=== PATIENT | male | born 1930 | race Caucasian/White ===

== ENCOUNTER 2016-10-20 23:33 | Inpatient (IN) | payer OTHER ==
[~2016-10-20] VITALS: Ht 180.3 cm; Wt 64.0 kg
--- NOTE | 2016-10-21 00:01 | NUR ---
RECEIVED 86 Y/O M BIB [facility] FOR FEVER AND ALOC FROM [facility]. PER MEDIC PT HAD FEVER OF 103 AT [facility] AND WAS SENT HERE. PT IS ORIENTED TO SELF ONLY; STS THE YEAR IS 1990 AND DOES NOT KNOW WHERE HE IS OR WHY HE IS HERE. RESP E/U, NAD NOTED. SITTER AT BEDSIDE.
[2016-10-21 00:37] LABS: microscopic required? NO
[2016-10-21 00:47] LABS: urine erythrocyte NEGATIVE (NEGATIVE)
[2016-10-21 01:02] LABS: CALCIUM 8.6 mg/dL (8.5-10.1); CARBON DIOXIDE 30.5 mmol/L (21-32); CHLORIDE SERUM 103 mmol/L (98-107); CREATININE SERUM 1.4 mg/dL (0.7-1.3); GLUCOSE SERUM 110 mg/dL (74-106); POTASSIUM SERUM 4.2 mmol/L (3.5-5.1); SODIUM SERUM 140 mmol/L (136-145)
[2016-10-21 01:06] LABS: BASOPHIL % 0.8 % (0-2); PLATELET COUNT 222 x10^3mcL (130-400); RED CELL DISTRIBUTION WIDTH 12.6 % (11.5-14.5)
[2016-10-21 01:10] LABS: ALKALINE PHOSPHATASE 63 U/L (46-116); ALT/SGPT 26 U/L (16-63); AST/SGOT 28 U/L (15-37); BILIRUBIN TOTAL 0.2 mg/dL (0.20-1.00)
[2016-10-21 01:11] LABS: ALBUMIN 3.2 g/dL (3.4-5.0); T4(THYROXINE) 4.1 ug/dL (4.7-13.3)
--- NOTE | 2016-10-21 01:20 | NUR ---
PATIENT MEDICATEB WTH TYLENOL FOR FEVER. STRAIGHT CATH WAS DONE URINE SENT TO THE LAB
[2016-10-21 02:15] LABS: MAGNESIUM 1.5 mg/dL (1.8-2.4); PHOSPHOROUS 3.1 mg/dL (2.5-4.9)
[2016-10-21 02:19] LABS: T3 TOTAL 1.15 ng/mL
[2016-10-21] MEDS ORDERED: HYDROCHLOROTH12.5 M2 PO (02:22)
[2016-10-21] MEDS ORDERED: ZYPREXA15 M1 PO (02:22)
[2016-10-21] MEDS ORDERED: NOR10 PO (02:23)
[2016-10-21] MEDS ORDERED: BUSPIRONE HCL5 MG PO (02:24)
[2016-10-21] MEDS ORDERED: MP PO (02:26)
[2016-10-21] MEDS ORDERED: ATIVAN1 MG PO (02:28)
[2016-10-21 02:32] LABS: FREE T4 0.78 ng/dL (0.76-1.46); FREE THYROXINE INDEX 1.5 ug/dL (1.4-4.5); T4(THYROXINE) 4.4 ug/dL (4.7-13.3)
--- NOTE | 2016-10-21 03:00 | NUR ---
PATIENT ISINCONTINENT, DIAPER AND LINEN CHANGED.
[2016-10-21 03:43] VITALS: BP 171/77
[2016-10-21 05:18] LABS: PLATELET COUNT 232 x10^3mcL (130-400); RED CELL DISTRIBUTION WIDTH 13.5 % (11.5-14.5)
[2016-10-21 05:29] LABS: CALCIUM 8.9 mg/dL (8.5-10.1); CARBON DIOXIDE 28.1 mmol/L (21-32); CHLORIDE SERUM 103 mmol/L (98-107); CREATININE SERUM 1.4 mg/dL (0.7-1.3); GLUCOSE SERUM 110 mg/dL (74-106); POTASSIUM SERUM 4.3 mmol/L (3.5-5.1); SODIUM SERUM 141 mmol/L (136-145)
[2016-10-21 05:46] LABS: MAGNESIUM 1.5 mg/dL (1.8-2.4); PHOSPHOROUS 3.3 mg/dL (2.5-4.9)
--- NOTE | 2016-10-21 05:49 | NUR ---
PATIENT IS SLEEPING. WAITING FOR ADMISSION ROOM.
[2016-10-21 05:55] LABS: BAND NEUTROPHIL 10 % (0-10); BASOPHIL 0 % (0-2); MONOCYTE 5 % (0-7); SEGMENTED NEUTROPHILS 73 % (37-75)
[2016-10-21 05:56] LABS: PLATELET MORPHOLOGY PLATELETS NORMAL; rbc morphology (normal/abnorm) NORMAL (NORMAL)
--- NOTE | 2016-10-21 06:20 | NUR ---
PATIENT IS SLEEPING.
--- NOTE | 2016-10-21 07:12 | NUR ---
pATIENT INCONTINENT, DIAPER CHANGED
--- NOTE | 2016-10-21 07:18 | NUR ---
PATIENT WENT TO HAVE XRAY DONE.
--- NOTE | 2016-10-21 07:23 | NUR ---
TRIED TO GIVE REPORT TO OUTDOOR STUDIES PROFESSOR, PER MARIELLA TRACTOR MECHANIC CHARGE UNABLE TO COME TO THE PHONE IN REPORT
--- NOTE | 2016-10-21 07:38 | NUR ---
REPORT GIVEN TO SAIRA TURCIOS FOR PT TO GO TO TELE BED 228
--- NOTE | 2016-10-21 08:00 | NUR ---
RECEIVED PATIETN FROM ER. CONFUSED. GARBLE SPEECH. TELE# 10= SR; HR = 78; BREATHING SOUND DIMINISHED DONATO. O2 SAT 95% ON RA. NO RESP DISTRESS IN RA. OCCASIONAL COUGHING. IVF OF NS 110CC/HR INFUSING WELL TO LAC. TRACE EDEMA TO BLE. NO S/S OF PAIN. CALL LIGHT IN REACH.
[2016-10-21 08:04] VITALS: BP 142/67
--- NOTE | 2016-10-21 08:30 | NUR ---
DR. DALAL AND MEDICAL TEAM MADE MORNING ROUND. PATIENT CONFUSING.
--- NOTE | 2016-10-21 17:02 | NUR ---
PATIENT AWAKE AND HAD LATER LUNCH. THEN PATIENT AGITATED. OUT OF BED AND PULLED TELE MONITOR. WALKED INTO [address] AND DIDN'T LET CAREGIVERS CLOSE TO HIM. I HOLD PATIENT'S GOWN. HE WAS ANGRY AND SAID, " I'LL KNOCK YOUR FACE IF YOU DON'T LET ME GO HOME". DR. ROJAS, PSYCHOLOGIST AT BED SIDE AND AWARE OF. DR. CASILLAS NOTIFED.
[2016-10-21 17:17] VITALS: BP 134/53
--- NOTE | 2016-10-21 17:22 | NUR ---
TEMP = 100.8. TYLENOL 650MG PO GIVEN.
--- NOTE | 2016-10-21 17:23 | NUR ---
ATIVAN 1MG PO GIVEN DUE TO PATIENT AGITATION.
--- NOTE | 2016-10-21 18:48 | NUR ---
RECHECK TEMP = 100.8. COOLING MEASURE CONTINUE. CALM AND RESTING IN BED NOW. SITTER AT BED SIDE FOR SAFETY PRECUTION.
--- NOTE | 2016-10-21 18:58 | NUR ---
PATIENT SPIT SPUTUM ON FLOOR. GREYISH SPUTUM SEEN.
--- NOTE | 2016-10-21 19:40 | NUR ---
REC'D AWAKE AND CONFUSED. LETHARGIC. DENIES PAIN. ON TELE 10, NSR. DENIES CHEST PAIN. ON 2L VIA NC, NO SOB NOTED. NOTED WOUNDS TO RIGHT ELBOW AND HIP. IV ON LAC WNL. CALL LIGHT WITHIN REACH, WILL CONTINUE TO MONITOR
[2016-10-21 20:20] VITALS: BP 127/44
--- NOTE | 2016-10-21 23:21 | NUR ---
DUE MEDS GIVEN, PT TOLERATED WELL. WILL CONTINUE TO MONITOR
--- NOTE | 2016-10-22 03:28 | NUR ---
PROVIDED REPORT TO YOLANDA TURCIOS
--- NOTE | 2016-10-22 03:30 | NUR ---
ASSUMED CARE OF PT AT THIS TIME. PT APPEARS TO BE SLEEPING COMFORTABLY. SITTER AT BEDSIDE.
[2016-10-22 05:49] VITALS: BP 139/53
[2016-10-22 06:20] LABS: BASOPHIL % 0.1 % (0-2); PLATELET COUNT 206 x10^3mcL (130-400); RED CELL DISTRIBUTION WIDTH 13.6 % (11.5-14.5)
[2016-10-22 06:25] LABS: CARBON DIOXIDE 25.3 mmol/L (21-32); CHLORIDE SERUM 110 mmol/L (98-107); CREATININE SERUM 1.1 mg/dL (0.7-1.3); GLUCOSE SERUM 89 mg/dL (74-106); MAGNESIUM 1.8 mg/dL (1.8-2.4); POTASSIUM SERUM 3.9 mmol/L (3.5-5.1); SODIUM SERUM 141 mmol/L (136-145)
--- NOTE | 2016-10-22 08:00 | NUR ---
ALERT/CONFUSED. HX OF DEMENTIA. AGITATED AT TIMES. TELE #10 = SR; BREATHING SOUND DIMINISHED DONATO. PRODUCTIVE COUGHING WITH SMALL AMOUNT GRAYISH SPUTUM. O2 SAT 95% ON RA. NO SOB. URINE INCONT AT TIMES. IVF OF NS 50CC/HR PER ORDER. IV SITE TO LFA INTACT. SITTER AT BED SIDE FOR SAFETY PRECAUTION.
[2016-10-22 08:52] VITALS: BP 155/55
--- NOTE | 2016-10-22 09:00 | NUR ---
DR. DALAL AND MEDICAL TEAM MADE MORNING ROUND. PLAN OF CARE TOLD PATIENT, INCLUDED WITH TREATMENT OF RESP INFECTION.
--- NOTE | 2016-10-22 11:00 | NUR ---
AGITATED AND OUT OF BED. HE ASKED ME TO "GO AIR FORCE TO GET HIS ID AND WALLET". ATIVAN 1MG PO GIVEN. SITTER AT BED SIDE.
--- NOTE | 2016-10-22 11:45 | NUR ---
REPORTED BY PEDRO, LEAD INVESTIGATOR, WAS SITTER AT BED SIDE WITH PATIENT. PATIENT SLIPPED ON URINE THAT PATIENT VOID TO FLOOR AND FELL ON FLOOR. PER NANCY, CHARGE NURSE - SHE SAW PATIENT WAS SITTING ON FLOOR WHEN SHE ENTERED TO ROOM 228. WHEN I ENTERED ROOM. PATIENT WAS WALKING OUT OF ROOM. DENIED PAIN. ABLE TO WALK BY HIMSELF. NO SKIN LESION SEEN.
--- NOTE | 2016-10-22 11:46 | NUR ---
PER REPORT OF KAROLINA LEAL AND KAROLINA FUNES - PATIENT WAS SITTING ON FLOOR. THEY HELPED PATIENT TO GET UP TO SIT IN CHAIR.
[2016-10-22 13:33] VITALS: BP 153/57
--- NOTE | 2016-10-22 13:38 | NUR ---
AGITATED AND WALKED OUT OF ROOM. HE WAS LOOKING FOR SHOES AND HAMMER. NOT CO-OP TO CARES. CALLED SECURITY TO ROOM. DR. CASILLAS NOTIFIED. ORDER OF ANTIVAN 0.5MG IVP GIVEN AFTER PATIENT HAD LUNCH.
--- NOTE | 2016-10-22 13:48 | NUR ---
CONTINUE AGITATED. YELLING AND ATTEMPTED TO OUT OF BED. DR. CASILLAS CALLED AND NOTIFIED. NEW ORDER OF HOLDOL 5MG IM GIVEN.
[2016-10-22 16:16] VITALS: BP 144/56
--- NOTE | 2016-10-22 17:40 | NUR ---
AGITATED. YELLING. ATIVAN 0.5MG IVP GIVEN. CONTINUE MONITOR.
--- NOTE | 2016-10-22 19:25 | NUR ---
NOTIFIED TO DR. KEY WITH PATIENT WHO FELL AT 1135. NO S/S OF INJURY. REPORT IS FOLLOWING.
--- NOTE | 2016-10-22 19:40 | NUR ---
RECEIVED PT IN BED AWAKE AND LOOKING VERY DROWSY BUT TRYING TO GET OOB. SITTER AT BEDSIDE. PT CONFUSED. HE IS REORIETED TO SURROUNDINGS AND SITUATION BUT INEFFECTIVE. LUNG SOUNDS CLEAR BUT DIMINISHED. PT W/ OCCASIONAL COUGHING. NO SOB ON RA. BOWEL SOUNDS ACTIVE. HE HAS NO C/O PAIN AT THIS TIME. W/ IVF INFUSING VIA LTFA. WILL CONTINUE W/ CARE.
[2016-10-22 21:00] VITALS: BP 163/67
--- NOTE | 2016-10-22 23:40 | NUR ---
PT'S HEART RHYTHM CONVERTED TO A-FIB. PT ASLEEP AT THIS TIME. V/S: T=98.8 RR=18 GB=533/94 JC=552 O2 SAT=94 %. PT HAS NO C/O CHEST PAIN.
[2016-10-23] VITALS (7 sets, daily range): BP systolic 119–163; BP diastolic 49–94
--- NOTE | 2016-10-23 00:25 | NUR ---
DR. TOURE INFORMED THAT PT'S HEART RHYTHM CONVERTED TO A-FIB. PT NOT C/O CHEST PAIN OR DISCOMFORT. PT BEING CLEANED AT THIS TIME (INCONTINENT OF URINE).
--- NOTE | 2016-10-23 00:56 | NUR ---
EKG DONE ORDERED AND SHOWS A-FIB W/ RVR.
--- NOTE | 2016-10-23 00:59 | NUR ---
CARDIZEM 10 MG IV GIVEN ORDERED.
--- NOTE | 2016-10-23 01:20 | NUR ---
BP RECHECKED AFTER CARDIZEM 10 MG IV : RB=533/84 CY=545. PT'S EYES CLOSED , CONFUSED AND MOVING ON AND OFF IN BED.
--- NOTE | 2016-10-23 01:40 | NUR ---
INFORMED DR. TOURE REGARDING EKG RESULT.
--- NOTE | 2016-10-23 01:47 | NUR ---
CARDIZEM 30 MG PO GIVEN ORDERED.
--- NOTE | 2016-10-23 01:51 | NUR ---
PT MEDICATED W/ MORPHINE SULFATE 2 MG IV FOR C/O NECK PAIN .
--- NOTE | 2016-10-23 01:51 | NUR ---
PT C/O NECK PAIN . MEDICATED W/ MORPHINE SULFATE 2 MG IV.
--- NOTE | 2016-10-23 04:49 | NUR ---
PT AWAKE AND CONFUSED. PT TRYING TO GET OOB AND COMBATIVE. HR IN THE 130'S. ATIVAN 0.5 MG IV GIVEN.
--- NOTE | 2016-10-23 05:25 | NUR ---
PT STILL AWAKE BUT MORE QUIET AND CALM AFTER ATIVAN WAS GIVEN. PT WAS MEDICATED FOR PAIN X1. HR IN THE 120'S=130'S AT THIS TIME. NO EPISODE OF SOB. IVF NS AT 50 CC/HR INFUSING VIA LTFA. ALL NEEDS ATTENDED TO. SITTER REMAINS AT BEDSIDE.
[2016-10-23 06:13] LABS: BASOPHIL % 0.1 % (0-2); PLATELET COUNT 247 x10^3mcL (130-400); RED CELL DISTRIBUTION WIDTH 13.6 % (11.5-14.5)
[2016-10-23 06:19] LABS: CALCIUM 8.5 mg/dL (8.5-10.1); CARBON DIOXIDE 27.5 mmol/L (21-32); CHLORIDE SERUM 107 mmol/L (98-107); GLUCOSE SERUM 96 mg/dL (74-106); MAGNESIUM 1.8 mg/dL (1.8-2.4); PHOSPHOROUS 3.9 mg/dL (2.5-4.9); POTASSIUM SERUM 3.9 mmol/L (3.5-5.1); SODIUM SERUM 143 mmol/L (136-145)
--- NOTE | 2016-10-23 07:30 | NUR ---
RECEIVED PATIENT DROWSY BUT AROUSABLE, CONFUSED, NO DISTRESS NOTED, RESPOND ONLY TO FIRST NAME. IV INTACT AND PATENT, SITTER 1:1 AT BEDSIDE, OCCAS DOZING OFF AND UNABLE TO EAT BREAKFAST AT THIS TIME. CHANGING GOWN AND REPOSITIONED UP IN BED. CALL LIGHT WITHIN REACH.
--- NOTE | 2016-10-23 08:00 | NUR ---
DR. MCDONALD AND MEDICAL TEAM MAKING ROUND ON PATIENT, DISCUSS POC, AND INCREASE SEROQUEL DOSAGE FOR PATIENT. RESTING IN BED NO DISTRESS NOTED WITH SITTER AT BEDSIDE.
--- NOTE | 2016-10-23 09:20 | NUR ---
PATIENT IS MORE AWAKE, CONFUSED, SITTER REMAIN AT BEDSIDE ASSISTING WITH REPOSITION UP IN BED, MEDS CRUSH AND GIVE WITH YOGURT PATIENT TAKE ALL W/O DIFFICULTY SWALLOWING. CONT TO MONITOR.
--- NOTE | 2016-10-23 11:35 | NUR ---
DR. TORRES SEEN PT WITH NEW ORDER FOR TOPROLOL AND D/C CARDIZEM. NEW ORDERS CARRY OUT, PHARMACY NOTIFIED.
--- NOTE | 2016-10-23 14:40 | NUR ---
DR. CASILLAS SEEN PATIENT, PT SLEEPY BUT AROUSABLE, SITTER AT BEDSIDE. MD AWARE TROPONIN 0.374, NEW ORDER ECHO.
--- NOTE | 2016-10-23 21:05 | NUR ---
SEROQUEL 50MG CRUSHED AND MIXED WITH APPLE SAUCE GIVEN, NO SIGNS OF ASPIRATION NOTED. PATIENT BECAME AGGRESSIVE WHEN TRYING TO REPOSITION PATIENT STS "F" YOU TO NURSING STAFFS AND TRYING TO HIT THE SITTER. REORIENTATION PROVIDED. NO ACUTE DISTRESS NOTED.
[2016-10-24 06:27] LABS: BASOPHIL % 0.1 % (0-2); PLATELET COUNT 261 x10^3mcL (130-400); RED CELL DISTRIBUTION WIDTH 13.6 % (11.5-14.5)
[2016-10-24 06:38] LABS: CALCIUM 8.6 mg/dL (8.5-10.1); CARBON DIOXIDE 26.8 mmol/L (21-32); CHLORIDE SERUM 106 mmol/L (98-107); CREATININE SERUM 1.2 mg/dL (0.7-1.3); GLUCOSE SERUM 108 mg/dL (74-106); MAGNESIUM 1.9 mg/dL (1.8-2.4); POTASSIUM SERUM 3.8 mmol/L (3.5-5.1); SODIUM SERUM 141 mmol/L (136-145)
[2016-10-24 06:52] VITALS: BP 128/67
--- NOTE | 2016-10-24 06:55 | NUR ---
NO SIGNIFICANT CHANGES THROUGHOUT THE SHIFT. V/S STABLE. REMAINS CONFUSED AND RESISTING WITH CARE AT TIMES. SITTER 1:1 AT BEDSIDE. DUE MEDS GIVEN. IVF NS TO LFA INFUSING WELL.
--- NOTE | 2016-10-24 07:30 | NUR ---
Received patient asleep but arousable, appear calm, no acute distress noted, sitter at bedside attempt feeding patient, refused breakfast. Will try again when patient fully awake. Call light within reach and bed in low position.
--- NOTE | 2016-10-24 08:46 | NUR ---
PATIENT AWAKE EAT 50% BREAKFAST AND ALL DUE MEDS GIVEN W/O DIFFICULTY SWALLOWING, CONT TO MONITOR.
[2016-10-24 10:08] VITALS: BP 89/47
[2016-10-24 10:30] VITALS: BP 137/57
--- NOTE | 2016-10-24 11:56 | NUR ---
PATIENT AWAKE AND WANT TO CLIMB OUT OF BED, DIDN'T ALLOW PT TO GET OUT AND GOT AGITATED, SCREAM, AND YELLING OUT AT ERGONOMICS CONSULTANT, PATIENT ATTEMPT KICKING AND HITTING STAFFS, ATIVAN 1MG PO GIVEN WITH APPLE SAUCE, ALLOW PATIENT TO CALM DOWN, SITTER REMAIN AT BEDSIDE TO MONITOR.
[2016-10-24 13:43] VITALS: BP 137/57
--- NOTE | 2016-10-24 13:54 | NUR ---
PNA/FLU VACCINATION UNABLE TO DETERMINE.
[2016-10-24 14:00] VITALS: BP 147/55
--- NOTE | 2016-10-24 14:04 | NUR ---
Patient remain awake but calm, still refused to keep gown on, unable to attempt IV access at this time patient uncooperative. Sitter remain at bedside cont to monitor.
--- NOTE | 2016-10-24 16:29 | NUR ---
Julian Guidry call and give report to Noreen RN, per nurse will arrange [facility] and will call to inform once [facility] has arrange. Will inform Dr. Moran to do discharge.
--- NOTE | 2016-10-24 16:32 | NUR ---
Dr. Moran was inform patient is accepting to [facility] and need to do discharge orders, MD request for accepting doctor. HERRERA spoke to MARLON Torres re: accepting MD from [facility].
--- NOTE | 2016-10-24 16:38 | NUR ---
OTHER NURSE SPOKE WITH [facility], THEY HAVE SET UP ADMINISTRATION MANAGER IN 30 MINUTES.
--- NOTE | 2016-10-24 16:46 | NUR ---
PER TYRELL MASON, ACCEPTING PHYSICIAN FOR [facility] IS DR. VILLASENOR. DR CASILLAS MADE AWARE.
[2016-10-24] MEDS ORDERED: LEVAQUIN750 MG PO (16:48)
[2016-10-24] MEDS ORDERED: LAC PO (16:49)
[2016-10-24] MEDS ORDERED: ECO81 PO (17:03)
[2016-10-24] MEDS ORDERED: TOP50 PO (17:03)
[2016-10-24] MEDS ORDERED: QUETIAPINE FUMA25 M1 PO (17:03)
[2016-10-24] MEDS ORDERED: SYN25 PO (17:04)
[2016-10-24] MEDS ORDERED: ZES10 PO (17:04)
--- NOTE | 2016-10-24 17:20 | NUR ---
PATIENT SLEEP NO DISTRESS NOTED, [facility] HERE FOR PATIENT, REPORT GIVE TO JARED. ALL BELONGINGS WITH PATIENT. IV D/C AND INTACT. PATIENT TRANSFER TO [facility] VIA [facility].
== END 2016-10-24 17:29 | DRG 871 ==
LOC: ED 23:33 → DU 10-21 01:32
PROVIDERS: Emergency Medicine; Family Medicine; ADMIT Family Medicine
DX: A41.9 Sepsis, unspecified organism (principal); J69.0 Pneumonitis due to inhalation of food and vomit; G93.41 Metabolic encephalopathy; I50.41 Acute combined systolic (congestive) and diastolic (congestive) heart failure; N17.0 Acute kidney failure with tubular necrosis; E44.0 Moderate protein-calorie malnutrition; Z68.1 Body mass index [BMI] 19.9 or less, adult; I13.0 Hypertensive heart and chronic kidney disease with heart failure and stage 1 through stage 4 chronic kidney disease, or unspecified chronic kidney disease; I42.9 Cardiomyopathy, unspecified; N18.3 Chronic kidney disease, stage 3 (moderate); F01.50 Vascular dementia, unspecified severity, without behavioral disturbance, psychotic disturbance, mood disturbance, and anxiety; E03.9 Hypothyroidism, unspecified; E83.42 Hypomagnesemia; I48.91 Unspecified atrial fibrillation; E02 Subclinical iodine-deficiency hypothyroidism; F32.9 Major depressive disorder, single episode, unspecified; I27.2 Other secondary pulmonary hypertension; G47.00 Insomnia, unspecified; D89.9 Disorder involving the immune mechanism, unspecified; G30.9 Alzheimer's disease, unspecified; F02.80 Dementia in other diseases classified elsewhere, unspecified severity, without behavioral disturbance, psychotic disturbance, mood disturbance, and anxiety
CPT/HCPCS: 36600; 82962; 83880; 84439; J1630; J1644; J1956; J2060; J2270; J2543; J3490; J7030; J7620; J7626; Q0092